=== PATIENT | male | born 1945 | race Caucasian/White ===

== ENCOUNTER 2019-05-23 09:05 | Outpatient (CLI) | payer MEDICARE, OTHER, SELFPAY ==
--- NOTE | 2019-05-23 09:17 | ECG_ITS ---
NAME OF STUDY: TREADMILL STRESS TEST INDICATION: Chest Pain, EXERCISE TREADMILL STRESS ORDERING PHYSICIAN: Larissa Jones CLINICAL INFORMATION: Chest pain INTERPRETATION: 1. The patient exercised for 6 minutes and 40 seconds on a Timbo protocol. He reached a maximum heart rate of 168 beats per minute, which is 115 % of his maximum predicted heart rate. The test was stopped due to achieving the desired heart rate. 2. The baseline electrocardiogram reveals sinus rhythm with a right bundle branch block and nonspecific ST wave changes. 3. With exercise, there were no ST segment changes to suggest ischemia. 4. The resting blood pressure was 143/99. The maximum blood pressure was 162/98. 5. At maximum exercise, the patient achieved 10.2 METs with a rate pressure product of 264. 6. The patient experienced no chest pain during the examination. PVCs, occasionally in the form of couplets occurred during exercise. CONCLUSION: 1. Normal exercise treadmill test. 2. Average exercise capacity for age. 3. Normal blood pressure response to exercise. Electronically Signed On 05-23-2019 16:28:10 SOLE BLACKER by Redd Guevara M.D. [id number]
[2019-05-23 09:20] VITALS: BMI 27.1
[2019-05-23 09:40] VITALS: BP 141/80; PULSE 78
== END 2019-05-23 09:06 | disposition home or self-care (01) ==
LOC: CDL 09:06
PROVIDERS: Family Provider Family Medicine; PCP Family Medicine; Visit Provider Nurse Practitioner Family
DX: R07.9 Chest pain, unspecified (principal); Z95.1 Presence of aortocoronary bypass graft
CPT/HCPCS: 93017

== ENCOUNTER 2019-08-29 11:26 | Outpatient (CLI) | payer MEDICARE, OTHER, SELFPAY ==
--- NOTE | 2019-08-29 11:32 | XR_ITS ---
WS: [id number] PROCEDURE: XR chest 2V* 10631 CLINICAL INFORMATION: COUGHING COMPARISON: March 04, 2019 FINDINGS: Heart: Cardiomegaly with sternotomy and mediastinal clips. Lungs: Mild chronic emphysematous changes. No acute pulmonary infiltrates. No focal pneumonia. Bones: Hypertrophic changes thoracic spine. XR/XR chest 2V* 43530 IMPRESSION: 1. Moderate chronic emphysematous changes. No acute pulmonary infiltrates. 2. Cardiomegaly with sternotomy and mediastinal clips.
== END 2019-08-29 11:27 | disposition home or self-care (01) ==
LOC: RAD 11:30
PROVIDERS: Family Provider Family Medicine; PCP Family Medicine; Visit Provider Family Medicine
DX: R05 Cough (principal); I51.7 Cardiomegaly
CPT/HCPCS: 71046

== ENCOUNTER 2021-04-13 12:52 | Outpatient (CLI) | payer MEDICARE, OTHER, SELFPAY ==
[2021-04-13 13:08] VITALS: BMI 27.1
--- NOTE | 2021-04-13 13:09 | ECG_ITS ---
[facility] Test Date: 2021-04-13 Pat Name: Dewayne William Department: Room: Gender: Male Building Supervisor: Kelly Renae : 1945 Requested By: Larissa Jones Order Number: [id number] Jostin MD: Jose Antonio Multani M.D. Interpretive Statements NAME OF STUDY: TREADMILL STRESS TEST INDICATION: [assess for chronotropic incompetence, ] EXERCISE DATA: The patient was exercised by Timbo protocol. Baseline heart rate was 99 beats per minute. Baseline blood pressure was 134/91 millimeters of mercury. Target heart rate was 121 beats per minute. Maximum heart rate achieved was 190 bpm, which was 157% of the target heart rate. Maximum blood pressure was 146/88 millimeters of mercury. Total exercise time was 7 minutes 35 seconds. Maximum METs achieved was 10.2, maximum VO2 was 35.7. The reason for ending the test was completion of protocol. No patient symptoms were reported. ELECTROCARDIOGRAM: BASELINE: Showed sinus rhythm, normal axis, no significant ST-T changes at the baseline noted. [] EXERCISE: At the peak exercise level, [] No significant ST-T changes suggestive of ischemia noted. Frequent PVCs were noted including an episode of nonsustained VT. [] RECOVERY: During the recovery period, heart rate dropped appropriately. No significant ST-T changes in the recovery suggestive of ischemia noted. [] CONCLUSION: 1. Exercise capacity good 2. Heart rate response was appropriate 3. Blood pressure response was appropriate 4. Symptoms not suggestive of ischemia. 5. Stress test negative for ischemia and patient had good chronotropic competence. Electronically Signed On 05-02-2021 12:29:42 PRINCIPAL SECURITY ARCHITECT by Jose Antonio Multani M.D. [id number]
[2021-04-13 13:52] VITALS: BP 122/72; PULSE 95
== END 2021-04-13 12:53 | disposition home or self-care (01) ==
LOC: CDL 12:54
PROVIDERS: PCP Family Medicine; Visit Provider Nurse Practitioner Family
DX: Z13.6 Encounter for screening for cardiovascular disorders (principal)
CPT/HCPCS: 93017

== ENCOUNTER → 2021-07-16 14:18 | Outpatient (BNVA) | payer MEDICARE, OTHER, SELFPAY | PROVIDERS: PCP Family Medicine; Visit Provider Internal Medicine | DX: I48.91 Unspecified atrial fibrillation (principal); I25.10 Atherosclerotic heart disease of native coronary artery without angina pectoris; I10 Essential (primary) hypertension; Z87.891 Personal history of nicotine dependence | CPT/HCPCS: 99214 ==

== ENCOUNTER 2021-12-28 13:20 | Emergency (ER) | payer MEDICARE, OTHER, SELFPAY ==
[2021-12-28 13:24] VITALS: BP 0/0; PULSE 0; RESP 0; O2SAT 0; BMI 27.8
--- NOTE | 2021-12-28 13:45 | ED_ITS ---
HPI - CPR General: Chief Complaint: Cardiac Arrest/CPR Stated Complaint: CPR IN PROGRESS Time Seen by Provider: 12/28/21 13:22 Source: EMS Limitations: other History of Present Illness: 76-year-old male presents emergency room via EMS with CPR in progress. Patient had an estimated downtime of around 1230 bystanders began CPR immediately according to report he fell off about it 8 foot ladder is immediately unresponsive when he landed on his back. He never had any respiratory effort. Bystanders began CPR EMS arrived within 10 minutes transfer the patient here at her he did have what looked like fine V. fib which they attempted to defibrillate with no response he had 9 epinephrine and 300 mg IV push of amiodarone no response with any of these. Patient has shown 1 episode of fine V. fib prior to arrival and then PEA on multiple occasions in route. MD complaint: found unresponsive and collapsed during activity Onset (ago): minute(s) (40) Timing confirmed by: family member Place: home Bystander CPR performed: Yes AED applied by bystander/master craftsman: No Initial findings in the field: unresponsive and PEA ROSC in the field: No Known history of: CAD and other (Atrial fibrillation) Review of Systems General: Reports: ROS unobtainable due to endotracheal tube PFSH ED PFSH: Medical History Atrial fibrillation BPH with obstruction/lower urinary tract symptoms Coronary artery disease HLD (hyperlipidemia) HTN (hypertension) Surgical History Hx of hernia repair S/P CABG x 5 Social History Smoking and tobacco status: former smoker Alcohol intake: current Alcohol intake frequency: holidays/special occasions only Alcohol type: wine Physical Exam Narrative: EXAM NARRATIVE: Unresponsive initially there is 1 brief run of fine V. fib on the monitor which was defibrillated with no result. No auscultated heart sounds no auscultated breath sounds in the absence of [id number] no spontaneous respirations. No reactions painful stimuli patient has not been sedated. Course Vital Signs: Vital signs: Vital Signs Pulse Rate 0 L 12/28/21 13:24 Respiratory Rate 0 L 12/28/21 13:24 Blood Pressure 0/0 12/28/21 13:24 Pulse Oximetry 0 L 12/28/21 13:24 MDM - Cardiac Arrest/CPR Medical Decision Making Resuscitative efforts continued initially patient has no electrical activity did have 1 episode of what possibly might of been fine V. fib ventricular fibrillat ion which was defibrillated with noted spot subsequently had PEA. But this time he has been down approximately 50 to 55 minutes he showed no sign of responding despite aggressive ACLS protocols he was given epinephrine and sodium bicarb after arrival here resuscitative efforts stopped due to length of time of nonresponsiveness to ACLS protocols discussed with family. Also discussed twisting frame fixer he asked that we retain the body until he is able to examine. Medical Records I reviewed the patient's medical records. Lab Data I reviewed the patient's lab results. Discharge Plan Discharge Patient Disposition: Clinical Impression: Acute myocardial infarction, Atrial fibrillation, Fall, Chronic anticoagulation Condition: Stable Prescriptions: No Action cyanocobalamin (vitamin B-12) 1,000 mcg capsule 1,000 mcg PO DAILY cholecalciferol (vitamin D3) 125 mcg (5,000 unit) tablet 125 mcg PO DAILY aspirin [Adult Low Dose Aspirin] 81 mg tablet,delayed release (DR/EC) 81 mg PO DAILY Xarelto 20 mg tablet 20 mg PO DAILY Rx Instructions: must administer with evening meal lisinopril 40 mg tablet 40 mg PO DAILY tamsulosin [Flomax] 0.4 mg capsule 0.4 mg PO DAILY Adult Probiotic 3 billion cell capsule 3,000 mmu cells PO DAILY Rx Instructions: administer with a meal rye grass extract-quercetin 500-250 mg tablet PO ascorbic acid (vitamin C) 1,000 mg tablet 1 g PO DAILY zinc 50 mg tablet 50 mg PO DAILY amlodipine 5 mg tablet 2.5 mg PO DAILY atorvastatin 40 mg tablet 40 mg PO DAILY Qty: 30 0RF nitroglycerin [Nitrostat] 0.4 mg tablet, sublingual 0.4 mg sublingual Q5M PRN (Reason: chest pain) Qty: 25 1RF Rx Instructions: do not exceed 3 doses per episode isosorbide mononitrate 30 mg tablet extended release 24 hr See Rx Instructions .ROUTE .COMPLEX Qty: 90 3RF Dose Instruction: TAKE ONE-HALF (1/2) TABLET TWICE A DAY Rx Instructions: TAKE ONE-HALF (1/2) TABLET TWICE A DAY Referrals: Axel Moreno MD [Primary Care Provider] - Coding Level of Care Code ED Inspector [employer] for Aydee Guardado
--- NOTE | 2021-12-28 13:46 | PC.NURSE ---
Patient arrived at 1319 via EMS already intubated and CPR in progress. 1321 - Pulse check, CPR resumed, CPR paused, Shock delivered. 1322 - EPI 1323 - Bicarb, pulse check, asystole, CPR resumed 1324 - Pulse Check, Asystole TOD called @ 1324 by doctor in room.
== END 2021-12-28 15:28 | disposition expired ==
PROVIDERS: Emergency Provider Family Medicine; PCP Family Medicine
DX: I21.9 Acute myocardial infarction, unspecified (principal); I48.91 Unspecified atrial fibrillation; D68.318 Other hemorrhagic disorder due to intrinsic circulating anticoagulants, antibodies, or inhibitors; W11.XXXA Fall on and from ladder, initial encounter; Z79.82 Long term (current) use of aspirin; I25.10 Atherosclerotic heart disease of native coronary artery without angina pectoris; I10 Essential (primary) hypertension; E78.5 Hyperlipidemia, unspecified; Z95.1 Presence of aortocoronary bypass graft; Z87.891 Personal history of nicotine dependence
CPT/HCPCS: 99285; J0171